=== PATIENT | female | born 1990 | race Hispanic/Latino ===

== ENCOUNTER 2022-05-21 16:35 | Emergency (ER) | payer BC ==
[2022-05-21] MEDS ORDERED: Dexamethasone 4 MG TAB ONE (17:13)
[2022-05-21] MEDS ORDERED: Diazepam 5 MG TAB ONE (17:13)
[2022-05-21] MEDS ORDERED: Acetaminophen 500 MG TAB ONE (17:31)
[2022-05-21] MEDS ORDERED: traMADol HCl 50 MG TAB ONE (18:51)
[2022-05-21 19:01] LABS: BHCG - Serum Negative (NEGATIVE); Pregs Control Background? CLEAR/WHITE (CLR/WHITE); Pregs Control Bar Appear? YES (CONTROL BAR)
[2022-05-21] MEDS ORDERED: Ketorolac Tromethamine 30 MG/ML VIAL ONE (19:12)
[2022-05-21] MEDS ORDERED: Morphine 4 MG/ML VIAL ONE (20:19)
== END 2022-05-21 22:09 | disposition home or self-care (01) ==
LOC: ERS 16:35
DX: S39.012A Strain of muscle, fascia and tendon of lower back, initial encounter (principal); X50.9XXA Other and unspecified overexertion or strenuous movements or postures, initial encounter
CPT/HCPCS: 36415; 84703; 96372; 96374; J1885; J2270; J8540